=== PATIENT | female | born 1945 | race Caucasian/White ===

== ENCOUNTER 2019-09-03 13:53 | Emergency (ER) | payer MEDICARE, SELFPAY ==
[2019-09-03 13:58] VITALS: PULSE 64; RESP 16; TEMP 36.8; O2SAT 95; BMI 43.4
[2019-09-03 14:09] VITALS: BP 221/88
--- NOTE | 2019-09-03 14:11 | RAD_ITS ---
STUDY: X-RAY - LEFT SHOULDER REASON FOR EXAM: Female, 74 years old. LT SHOULDER PAIN, LT SIDE CP. LTD ROM. HX FALL TECHNIQUE: 2 view(s) of the shoulder. COMPARISON: None. FINDINGS: Normal glenohumeral articulation. Normal acromioclavicular joint. Normal acromion. Acute fracture across the greater tubercle of the left humeral head. Normal proximal humeral shaft. The soft tissue structures are unremarkable. Normal visualized pulmonary apex. RAD/Shoulder min 2 Views IMPRESSION: Acute fracture across the greater tubercle of the left humeral head. Electronically Signed: Isreal Patino MD at 14:58 EDT , Service support ,
--- NOTE | 2019-09-03 14:11 | RAD_ITS ---
STUDY: X-RAY CHEST REASON FOR EXAM: Female, 74 years old. LT SHOULDER PAIN, LT SIDE CP. HX FALL TECHNIQUE: AP upright portable view. COMPARISON: None. FINDINGS: Mild pulmonary hypoinflation. No suspicious infiltrates. There is no demonstrated pleural abnormality. Normal size heart. Normal mediastinum and fabio. Normal visualized pulmonary arteries. Atherosclerotic calcifications of the thoracic aorta. Normal visualized thoracic spine. Acute fracture of the left humeral neck. Normal clavicles, right shoulder and rib cage. There is no demonstrated abnormality of the visualized soft tissue structures of the upper abdomen. RAD/Chest 1 View IMPRESSION: 1. No acute cardiopulmonary pathology. 2. Acute fracture of the left humeral neck. Electronically Signed: Isreal Patino MD at 14:57 EDT , Service support ,
--- NOTE | 2019-09-03 14:11 | ED.VISSUMM ---
- ER Visit Summary Date of Service: 09/03/19 Chief Complaint: [Fall with injury to left shoulder] History of Present Illness: The patient is a 74 F [presents the emergency department after sustaining a fall today. Patient states that about a half an hour ago she was helping load a van when she tripped over a case of water on the floor and landed on her left shoulder. She fell onto a carpeted floor. She not strike her head. She denies loss of consciousness. She denies neck pain. She has been ambulatory since the fall. Patient is right-hand dominant. She also complains of some mild discomfort in the upper chest. Patient denies any back pain. She has history of hypertension.] Physical Examination: [HEENT-PERRLA, EOMI. Cranial nerves II through XII grossly intact. TMs clear. Mucous membranes moist. No adenopathy. Cardiovascular-regular rate and rhythm without murmur or ectopy Lungs-clear to auscultation, chest wall stable without crepitus or subcu emphysema. Patient has some mild tenderness over the left anterior chest wall. Abdomen-normoactive bowel sounds, soft, nontender, no rebound or rigidity, no peritoneal signs. Extremities-intact ?4, normal range of motion, normal pulses. Patient has tenderness over the left anterior glenohumeral joint and proximal humerus. Has some mild soft tissue swelling noted. She has pain with range of motion. She is neurovascular intact distally. She has superficial abrasions over the left elbow but no bony tenderness on exam.] Test Results: [Patient had x-rays of the chest and I do not appreciate any obvious rib fractures or pneumothorax. Patient also had x-rays of the left shoulder which did show a fracture of the proximal humerus without evidence of dislocation.] Emergency Department Course and Treatment: [She was given a sling. Patient was given a dose of [place].] Treatment Plan: [She will be referred to orthopedics on-call Dr. Clarke Souza for follow-up. She will be given a prescription for [place] for pain.] Disposition: [Discharged home in stable condition] Impression: [Mechanical fall Left proximal humerus fracture Chest contusion] This note was generated with [employer] software. It may contain incorrect words, spelling, and punctuation that were not noted in review of the chart prior to signing
[2019-09-03] MEDS: HYDROcodone Bitartrate/Apap 5/325 Tablet PO (14:48)
--- NOTE | 2019-09-03 14:53 | ED.DEP ---
ED Disposition - Plan for ED Patient: Instructions: ED Fracture Upper Extremity, ED Mechanical Fall, ED CHEST CONTUSION Prescriptions: Hydrocodone Bitart/Apap 5-325 [[place] 5MG-325MG] 1 tab PO Q4H PRN PRN 2 Days #14 tab PRN Reason: Pain Prescription Printed Referrals: Geovanni Krishnan MD [Primary Care Provider] - Clarke Souza MD [STAFF PHYSICIAN] - 3-5 Days
[2019-09-03 15:09] VITALS: BP 196/86; PULSE 60; RESP 13; O2SAT 97
== END 2019-09-03 15:10 | disposition home or self-care (01) ==
LOC: ED 14:18
PROVIDERS: Emergency Provider Emergency Medicine; PCP Family Medicine
DX: S42.202A Unspecified fracture of upper end of left humerus, initial encounter for closed fracture (principal); S20.219A Contusion of unspecified front wall of thorax, initial encounter; I10 Essential (primary) hypertension; W01.0XXA Fall on same level from slipping, tripping and stumbling without subsequent striking against object, initial encounter; Y93.89 Activity, other specified; Y92.89 Other specified places as the place of occurrence of the external cause; Y99.8 Other external cause status
CPT/HCPCS: 71045; 73030; 99283